=== PATIENT | female | born 1960 | race Caucasian/White ===

== ENCOUNTER 2017-01-31 13:32 | Day surgery (SDC) | payer BC ==
[~2017-01-31] VITALS: Ht 170.2 cm; Wt 90.0 kg
[~2017-01-31 13:32] MED LIST: BUPIVACAINE/PF 0.5% ONE; EPINEPHRINE 1 MG/ML, 1ML ONE; LIDOCAINE/PF 1%, 30ML ONE; NAPR220C2 PO
[2017-01-31 13:52] VITALS: BP 113/77
[2017-01-31] MEDS ORDERED: EPHEDRINE 50 MG/ML, 1ML IVPush PRN (14:00)
[2017-01-31] MEDS ORDERED: hydrALAzine 20 MG/ML, 1ML IV PRN (14:00)
[2017-01-31] MEDS ORDERED: HYDROmorphone 1 MG/ML, 1ML IV PRN (14:00)
[2017-01-31] MEDS ORDERED: OXYcodone 5 MG/5 ML ORAL.SOL UDC PO PRN (14:00)
[2017-01-31] MEDS ORDERED: ONDANSETRON 2MG/ML, 2ML IVPush PRN (14:00)
[2017-01-31] MEDS ORDERED: PROMETHAZINE 25 MG/ML, 1ML IV PRN (14:00)
[2017-01-31] MEDS ORDERED: LABETALOL 5MG/ML, 20ML IV PRN (14:00)
[2017-01-31] MEDS ORDERED: METOPROLOL 1 MG/ML, 5ML IV PRN (14:00)
[2017-01-31] MEDS ORDERED: ACETAMINOPHEN 325 MG TABLET PO PRN (14:00)
[2017-01-31] MEDS ORDERED: ALBUTEROL SULFATE 2.5 MG/3 ML NPPB PRN (14:00)
[2017-01-31] MEDS ORDERED: MEPERIDINE/PF 25MG/0.5ML IVPush PRN (14:00)
[2017-01-31] MEDS ORDERED: LACTATED RINGERS 1,000 ML IV SCH (14:04)
[2017-01-31] MEDS ORDERED: LIDOCAINE 1%, 2ML ONE (14:05)
[2017-01-31] MEDS ORDERED: FENTANYL PF 100 MCG/2ML ONE ×2 (14:32→16:02)
[2017-01-31] MEDS ORDERED: CEFAZOLIN 1,000 MG ONE ×2 (14:32→14:33)
[2017-01-31] MEDS ORDERED: MIDAZOLAM 1 MG/ML, 2ML ONE (14:32)
[2017-01-31] MEDS ORDERED: ROCURONIUM 10 MG/ML ONE (14:32)
[2017-01-31] MEDS ORDERED: PROPOFOL 10 MG/ML, 20ML ONE (14:32)
[2017-01-31] MEDS ORDERED: ONDANSETRON 2MG/ML, 2ML ONE (14:35)
[2017-01-31] MEDS ORDERED: DEXAMETHASONE 4 MG/ML, 1ML ONE (14:35)
[2017-01-31] MEDS ORDERED: KETOROLAC 30 MG/1 ML ONE (15:25)
[2017-01-31] MEDS ORDERED: NAPROXEN 250 MG TABLET PO PRN (16:00)
[2017-01-31] MEDS ORDERED: ACETAMINOPHEN 650 MG/20.3 ML UDC ONE (16:02)
[2017-01-31] MEDS ORDERED: OXYcodone 5 MG/5 ML ORAL.SOL UDC ONE (16:02)
[2017-01-31] MEDS: FENTANYL PF 100 MCG/2ML IV PRN ×2 (16:07→16:08)
== END 2017-01-31 17:30 ==
LOC: OUT 13:32
PROVIDERS: ATTEND Orthopaedic Surgery
DX: S83.232A Complex tear of medial meniscus, current injury, left knee, initial encounter (principal); S83.282A Other tear of lateral meniscus, current injury, left knee, initial encounter; X58.XXXA Exposure to other specified factors, initial encounter; Y93.89 Activity, other specified; Y92.89 Other specified places as the place of occurrence of the external cause; Y99.8 Other external cause status
CPT/HCPCS: 29880; J0171; J0690; J1100; J1885; J2250; J2405; J2704; J3010; J3490; J7120